=== PATIENT | male | born 1975 | race Caucasian/White ===

== ENCOUNTER 2022-04-03 09:36 | Emergency (ER) | payer MEDICAID ==
[~2022-04-03] VITALS: Ht 188 cm; Wt 126.7 kg
[2022-04-03] MEDS ORDERED: dexamethasone sod phosphate 10mg/ml inj IV STA (10:06)
[2022-04-03 13:11] VITALS: BP 145/95
== END 2022-04-03 13:20 | disposition home or self-care (01) ==
LOC: ER 09:38
DX: K12.2 Cellulitis and abscess of mouth (principal); I10 Essential (primary) hypertension; E03.9 Hypothyroidism, unspecified
CPT/HCPCS: 70360; 87081; 87880; 96374; 99284; J1100

== ENCOUNTER 2022-10-09 03:25 | Emergency (ER) | payer MEDICAID ==
[~2022-10-09] VITALS: Ht 188 cm; Wt 120.0 kg
[2022-10-09 03:45] LABS: CLARITY,URINE SLIGHTLY CLOUDY (Clear); COLOR,URINE YELLOW (Yellow); GLUCOSE, URINE NEGATIVE (Neg); KETONES,URINE NEGATIVE (Neg); LEUKOCYTE ESTERASE ,URINE NEGATIVE (Neg); NITRITES, URINE NEGATIVE (Neg); OCCULT BLOOD,URINE SMALL (Neg); PROTEIN,URINE TRACE mg/dl (Neg); UROBILINOGEN,URINE 0.2 E.U/dL (0.2-1.0)
[2022-10-09 03:51] LABS: UA COLLECTION TYPE CLN CATCH MIDSTREAM
[2022-10-09 03:52] LABS: BACTERIA,URINE 1+ /HPF (Neg); MUCUS STRANDS FEW /LPF (Neg); SQUAMOUS EPITHELIAL CELL,UR FEW /LPF (FEW); WBC,URINE 0-4 /HPF (0-4)
[2022-10-09 03:53] LABS: TRANSITIONAL EPI CELLS,URINE MODERATE /HPF
[2022-10-09] MEDS ORDERED: normal saline 1000ML IV soln IVB ONE (05:05)
[2022-10-09] MEDS ORDERED: pantoprazole 40 MG vial IV ONE (05:05)
[2022-10-09] MEDS ORDERED: ondansetron/PF 4mg/2ml inj IV ONE (05:05)
[2022-10-09] MEDS ORDERED: pantoprazole 40MG/NS 100ML BAG 100 ML IV ONE (05:15)
[2022-10-09 06:25] LABS: BASOPHILS % (AUTO) 0.1 % (0-1); EOSINOPHILS % (AUTO) 0.6 % (0-6); HEMATOCRIT 44.5 % (42.0-52.0); HEMOGLOBIN 14.9 g/dl (14.0-17.9); LYMPHOCYTES # (AUTO) 0.5 X10'3 (1.1-4.8); LYMPHOCYTES % (AUTO) 8.1 % (21-51); MEAN CORPUSCULAR HGB CONC 33.5 g/dL (33.0-36.5); MEAN CORPUSCULAR VOLUME 92.5 FL (78-98); MEAN PLATELET VOLUME 9.2 FL (7.4-10.4); MONOCYTES % (AUTO) 17.6 % (2-12); NEUTROPHILS # (AUTO) 4.3 X10'3 (1.8-7.7); NEUTROPHILS % (AUTO) 73.6 % (42-75); PLATELET COUNT 217 X10'3 (140-440); RED BLOOD COUNT 4.81 X10'6 (4.70-6.10); RED CELL DISTRIBUTION WIDTH 13.3 % (11.5-14.5); WHITE BLOOD COUNT 5.9 X10'3 (4.5-11.0)
[2022-10-09 06:26] LABS: ALANINE AMINOTRANSFERASE 36 U/L (12-78); ALBUMIN 3.5 G/DL (3.4-5.0); ALBUMIN/GLOBULIN RATIO 0.8 (1.1-1.5); ALKALINE PHOSPHATASE 62 IU/L (46-116); ANION GAP 6 (8-16); ASPARTATE AMINO TRANSFERASE 19 U/L (10-37); BILIRUBIN,TOTAL 0.3 MG/DL (0.1-1.0); BLOOD UREA NITROGEN 18 MG/DL (7-18); BUN/CREATININE RATIO 14.2 (10.0-20.0); CALCIUM 8.4 MG/DL (8.5-10.1); CHLORIDE 101 MMOL/L (99-107); CREATININE 1.27 MG/DL (0.60-1.10); GLUCOSE 109 MG/DL (70-104); POTASSIUM 3.8 MMOL/L (3.5-5.1); SODIUM 136 MMOL/L (135-145); TOTAL CARBON DIOXIDE 28.7 MMOL/L (24-32); TOTAL PROTEIN 7.8 G/DL (6.4-8.2); eGFR 61 ML/MIN
[2022-10-09 06:28] LABS: LIPASE 98 U/L (73-393)
[2022-10-09] MEDS ORDERED: famotidine 20mg tablet PO ONE (07:45)
[2022-10-09] MEDS ORDERED: mag hydrox/Alum hydrox/simeth 30ml oral suspension PO ONE (07:45)
[2022-10-09] MEDS ORDERED: ondansetron 4mg rapidly disintigrating tab PO ONE (07:45)
[2022-10-09 08:44] VITALS: BP 155/95
[2022-10-09 11:05] LABS: TOTAL CELLS COUNTED 100
[2022-10-09 11:06] LABS: PLATELET ESTIMATE NORMAL; SMUDGE CELLS FEW
== END 2022-10-09 08:54 | disposition home or self-care (01) ==
LOC: ER 03:25
DX: R11.2 Nausea with vomiting, unspecified (principal); R19.7 Diarrhea, unspecified; R42 Dizziness and giddiness; E78.00 Pure hypercholesterolemia, unspecified; I10 Essential (primary) hypertension; E07.9 Disorder of thyroid, unspecified; Z88.2 Allergy status to sulfonamides
CPT/HCPCS: 36415; 71045; 80053; 81001; 83690; 84484; 85007; 85025; 93005; 96365; 96375; 99285; C9113; J2405; J7030